=== PATIENT | male | born 1990 | race Hispanic/Latino ===

== ENCOUNTER 2018-08-25 06:32 | Emergency (ER) | payer OTHER, SELFPAY ==
[2018-08-25] MEDS ORDERED: Adacel (T-DAP) 0.5 ML VIAL ONE (07:15)
[2018-08-25] MEDS ORDERED: Ketorolac Tromethamine 30 MG/ML VIAL ONE (07:39)
[2018-08-25 07:57] LABS: ALT (SGPT) 91 U/L (8-55); AST (SGOT) 51 U/L (5-34); Albumin 4.7 g/dL (3.5-5.0); Alkaline Phosphatase 63 U/L (40-150); Anion Gap 14 mmol/L (10-20); BUN (Urea Nitrogen) 11 mg/dL (8.9-20.6); Bilirubin, Total 0.7 mg/dL (0.2-1.2); Calc. Creatinine Clearance 0 mL/min (70-130); Calcium 9.6 mg/dL (7.8-10.44); Carbon Dioxide 26 mmol/L (22-29); Chloride 105 mmol/L (98-107); Estimated GFR-MDRD Greater than 90; Globulin 2.9 g/dL (2.4-3.5); Glucose 108 mg/dL (70-105); Potassium 3.5 mmol/L (3.5-5.1); Protein, Total 7.6 g/dL (6.0-8.3); Sodium 141 mmol/L (136-145)
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
[2018-08-25 09:04] LABS: #Basophils 0.1 thou/uL (0.0-0.2); #Eosinphils 0.2 thou/uL (0.0-0.7); #Lymphocytes 2.6 thou/uL (1.20-3.40); #Monocytes 0.6 thou/uL (0.11-0.59); #Neutrophils 3.2 thou/uL (1.40-6.50); %Basophils 0.8 % (0.0-1.0); %Eosinophils 2.7 % (0.0-10.0); %Lymphocytes 39.4 % (21.0-51.0); %Monocytes 9.5 % (0.0-10.0); %Neutrophils 47.6 % (42.0-75.0); Hemoglobin 16.2 g/dL (14.0-18.0); Mean Corpuscular HGB CONC 32.7 g/dL (32.0-36.0); Mean Corpuscular Hemoglobin 28.9 pg (27.0-31.0); Mean Corpuscular Volume 88.3 fL (78.0-98.0); Mean Platelet Volume 8.8 fL (7.4-10.4); Platelet Count 208 thou/uL (130-400); RBC Distribution Width 12.2 % (11.5-14.5); Red Blood Cell (RBC) Count 5.61 mill/uL (4.70-6.10); White Blood Cell (WBC) Count 6.7 thou/uL (4.8-10.8)
[2018-08-25] MEDS ORDERED: Lidocaine 1% (PF) 30 ML VIAL ONE (09:59)
[2018-08-25 10:13] LABS: Bilirubin Negative (Negative); Blood, Urine Negative (Negative); Clarity CLEAR (Clear); Glucose, Urine (Dipstick) Negative (Negative); Leukocyte Negative (Negative); Nitrite Negative (Negative); Protein, Urine (Dipstick) Trace mg/dL (Neg-Trace); Urobilinogen 0.2 mg/dL (0.2-1.0); pH, Urine 6.5 (5.0-9.0)
[2018-08-25 10:15] LABS: Specific Gravity, Urine 1.043 (1.002-1.036)
[2018-08-25] MEDS ORDERED: Bacitracin Zinc 1 Packet ONE (10:42)
[2018-08-25] MEDS ORDERED: ISOVUE-370 76%-LOCM 1 ML ONE (15:55)
== END 2018-08-25 11:25 | disposition home or self-care (01) ==
LOC: ERS 06:32
DX: S61.422A Laceration with foreign body of left hand, initial encounter (principal); S61.512A Laceration without foreign body of left wrist, initial encounter; S00.83XA Contusion of other part of head, initial encounter; T14.8XXA Other injury of unspecified body region, initial encounter; F17.210 Nicotine dependence, cigarettes, uncomplicated; Z71.6 Tobacco abuse counseling; V59.9XXA Occupant (driver) (passenger) of pick-up truck or van injured in unspecified traffic accident, initial encounter
CPT/HCPCS: 12001; 70450; 71260; 72125; 74177; 80053; 81003; 85025; 90715; 99406; J1885; J2001